=== PATIENT | male | born 1975 | race Caucasian/White ===

== ENCOUNTER 2024-03-13 07:34 | Observation (INO) ==
--- OUTSIDE RECORDS SUMMARY | 2024-03-13 07:39 | External Medical Summary | Summary of Care ---
Author Name Unknown Organization [facility] Address [address] [place] [address] Phone [phone] Care Team Providers Care Director Risk Name Role Phone Unavailable Primary Care Provider Unavailabl e Reason for Visit * Auth/Cert Specialty Diagnoses / Procedures Referred By Benton alcaraz Referred To Contact Diagnoses Family history of colon cancer Family history of colon cancer [Z80.0] Procedures COLONOSCOPY, DIAGNOSTIC (RECTUM) COLONOSCOPY FLEXIBLE PROXIMAL DIAGNOSTIC Isaias Rangel MD [address] [place] [address] Phone: tel: fax: ENDO [facility], Endoscopy Room [facility] [address] [place] [address] Phone: tel: Referral ID Status Reason Start Date Expiration Date Visits Re quested Visits Authorized [id number] Encounter Details Date Type Department Care Team (Latest Contact Info) Description 01/04/2024 1:44 PM EST - 01/04/2024 3:13 PM [facility] Hospital Encounter ENDO [facility], Endoscopy Room [facility] [address] [place] [address] Isaias Rangel MD [address] [place] [id number] Colonoscopy Discharge Disposition: Home - Self Care Allergies Active Allergy Reactions Criticality Noted Date Comments Pollen 12/27/2023 documented as of this encounter (statuses as of 01/05/2024) Medications Vilazodone HCl 10 MG Oral Tablet (Viibryd) Take 1 Tablet by mouth. 2 Active Vilazodone HCl 20 MG Oral Tablet (Viibryd) Take 1 Tablet by mouth. 3 Active buPROPion HCl ER (XL) 300 MG Oral Tablet Extended Release 24 Hour (Wellbutrin XL) Take 1 Tablet by mouth. 3 Active buPROPion HCl ER (XL) 150 MG Oral Tablet Extended Release 24 Hour (Wellbutrin XL) Take 1 Tablet by mouth in the morning. 2 Active Cetirizine HCl 10 MG Oral Tablet (ZyrTEC) Take 1 Tablet by mouth in the morning. Active Acetaminophen 500 MG Oral Tablet Take 1 Tablet by mouth every 6 hours as needed. Active valACYclovir HCl 1 GM Oral Tablet (Valtrex)Indicat ions:Oral herpes simplex infection Take 2 Tablets by mouth in the morning and 2 Tablets before bedtime. For 1 day for cold sores. 4 Tablet 5 4 Active Additional Information Patient not taking.Reported on 12/27/2023 Benzonatate 100 MG Oral Capsule (Tessalon Perlramon) Take 1 Capsule by mouth 3 times a day as needed for Cough. Do not cut, crush, or chew. 30 Capsule 4 Active Albuterol Sulfate (sensor) 108 (90 Base) MCG/ACT Aerosol Powder Breath ActivatedIndicat ions:Acute bronchitis, antibiotics not indicated Inhale 2 Puffs by mouth every 4 hours. 16 Each 2 4 Active predniSONE 10 MG Oral Tablet (Deltasone)Indic ations:Acute bronchitis, antibiotics not indicated Take 4 tabs for 2 days, 3 tabs for 2 days, 2 tabs for 2 days 1 tab for 2 days 20 Tablet 4 Active Albuterol Sulfate HFA 108 (90 Base) MCG/ACT Inhalation Aerosol Solution Inhale 2 Puffs by mouth every 6 hours as needed for Cough or Wheezing. 18 g 1 4 Active documented as of this encounter (statuses as of 01/05/2024) Active Problems Problem Noted Date Diagnosed Date DDD (degenerative disc disease), lumbar 09/14/19 23 Depression 09/13/2022 documented as of this encounter (statuses as of 01/05/2024) Immunizations Name Administration Dates Next Due Seasonal Influenza Virus Vac cine, Unspecified Formulation 11/18/2022 documented as of this encounter Social History Tobacco Use Types Packs/Day Years Used Date Smoking Tobacco: Never Smokeless Tobacco: Never Alcohol Use Standard Drinks/Week Comments Yes 0 (1 standard drink = 0.6 oz pur e alcohol) 1 drink maybe 3 times a week Sex and Gender Information Value Date Recorded Sex Assigned at Male 09/12/2022 4:49 PM EDT Legal Sex Male 10:00 AM EDT Gender Identity Male 09/12/2022 4:49 PM EDT Sexual Orientation Straight 09/12/2022 4: 49 PM EDT documented as of this encounter Last Filed Vital Signs Vital Sign Reading Time Taken Comments Blood Pressure 107/67 01/04/2024 2:51 PM EST Pulse 66 01/04/2024 2:51 PM EST Temperature 36.2 C (97.2 F) 01/04/2024 2:37 PM ES T Respiratory Rate 16 01/04/2024 2:51 PM EST Oxygen Saturation 100% 01/04/2024 2:51 PM EST Inhaled Oxygen Concentration - - Weight 77.1 kg (170 lb) 01/04/2024 2:02 PM EST Height 180.3 cm (5' 11") 01/04/2024 2:02 PM EST Body Mass Index 23.71 01/04/2024 2:02 PM EST documented in this encounter H&P Notes * Isaias Rangel MD - 01/04/2024 1:54 PM EST Endoscopy Pre-Procedure Assessment Name: Lior Wagner Date: 01/04/2024 Time: 1:54 PM Procedure: Colonoscopy; with Indication(s) of family history Endoscopy Pre-Procedure Assessment: Prior to the procedure, the patient was identified. The patient's history, medications and allergies were reviewed as per the Anesthesia Assessment. The patient is competent. The risks and benefits of the proposed procedure and the planned sedation were discussed with the patient. All questions were answered and informed consent for the procedure was obtained. This patient has undergone a preprocedural evaluation. A determination has been made to proceed with the planned procedure under [facility] procedural guidelines and the [facility] Non-Emergent, Elective Medical Services and Treatment Recommendations (published on 05-15-19). The community and hospital prevalence of COVID-19 has been discussed as well as this patient's specific risks associated with SARS-CoV-19 infection. Based upon the clinical acuity and patient-specific care considerations, this procedure is deemed a Tier II - Intermediate acuity treatment or service with either progression or the threat of progressive disease related to the delay in treatment. Not providing the service has the potential for increasing morbidity or mortality. Ht 1.803 m (5' 11") | Wt 77.1 kg (170 lb) | BMI 23.71 kg/m | BSA 1.97 m Prior to Admission medications Medication Sig Last Dose Discont. Albuterol Sulfate HFA 108 (90 Base) MCG/ACT Inhalation Aerosol Solution Inhale 2 Puffs by mouth every 6 hours as needed for Cough or Wheezing. 12/27/2023 Morning Albuterol Sulfate (sensor) 108 (90 Base) MCG/ACT Aerosol Powder Breath Activated Inhale 2 Puffs by mouth every 4 hours. 12/27/2023 predniSONE 10 MG Oral Tablet (Deltasone) Take 4 tabs for 2 days, 3 tabs for 2 days, 2 tabs for 2 days 1 tab for 2 days 12/27/2023 Morning Benzonatate 100 MG Oral Capsule (Tessalon Perles) Take 1 Capsule by mouth 3 times a day as needed for Cough. Do not cut, crush, or chew. Past Week Acetaminophen 500 MG Oral Tablet Take 1 Tablet by mouth every 6 hours as needed. 12/27/2023 buPROPion HCl ER (XL) 150 MG Oral Tablet Extended Release 24 Hour (Wellbutrin XL) Take 1 Tablet by mouth in the morning. 12/27/2023 Morning buPROPion HCl ER (XL) 300 MG Oral Tablet Extended Release 24 Hour (Wellbutrin XL) Take 1 Tablet by mouth. 12/27/2023 Morning Cetirizine HCl 10 MG Oral Tablet (ZyrTEC) Take 1 Tablet by mouth in the morning. 12/27/2023 Morning Vilazodone HCl 10 MG Oral Tablet (Viibryd) Take 1 Tablet by mouth. 12/27/2023 Morning Vilazodone HCl 20 MG Oral Tablet (Viibryd) Take 1 Tablet by mouth. 12/27/2023 Morning Amoxicillin-Pot Clavulanate 875-125 MG Oral Tablet (Augmentin) Take 1 Tablet by mouth in the morning and 1 Tablet before bedtime. Do all this for 10 days. predniSONE 20 MG Oral Tablet (Deltasone) Take 2 Tablets by mouth in the morning for 5 days. valACYclovir HCl 1 GM Oral Tablet (Valtrex) Take 2 Tablets by mouth in the morning and 2 Tablets before bedtime. For 1 day for cold sores. Patient not taking: Reported on 12/27/2023 Not Taking Review of patient's allergies indicates: Allergen Reactions Pollen Physical Exam: Mental Status Examination: alert and oriented. General: nad, calm Airway Examination: normal oropharyngeal airway and neck mobility. CV: no JVD Respiratory Examination: symmetrical excursion Abd:soft/ntd ASA Grade: III - A patient with severe systemic disease. After reviewing the risks and benefits, the patient was deemed in satisfactory condition to undergothe procedure. The anesthesia plan was to use general anesthesia. Isaias Rangel MD 01/04/2024 documented in this encounter Procedure Notes * Leigh Aaron MD - 01/04/2024 1:55 PM ESTAssociated Order(s): COLONOSCOPY [facility] Patient Name: Lior Wagner Procedure Date: 01/04/2024 1:55 PM Date of : 1975 Admit Type: Outpatient Note Status: Finalized Date of : 1975 Admit Type: Outpatient Age: 48 Room: [facility] 2 Gender: Male Note Status: Finalized Procedure: Colonoscopy Indications: Screening in patient at increased risk: Family history of 1st- degree relative with colorectal cancer Providers: Isaias Rangel MD (Doctor) Referring MD: Leigh Aaron MD (Referring MD) Medicines: Propofol per Anesthesia Complications: No immediate complications. Estimated blood loss: None. Procedure: Pre-Anesthesia Assessment: - - Prior to the procedure, a History and Physical was performed, patient medications, allergies and sensitivities were reviewed. The patient's tolerance of previous anesthesia was reviewed. See Epic for further details. - The risks, benefits, and alternatives of the procedure including the sedation options and risks were discussed with the patient. All questions were answered and informed consent was obtained. - Patient identification and proposed procedure were verified prior to the procedure by the physician and the nurse. The procedure was verified in the procedure room. - See [facility] for documentation of the pre-procedure assessment including ASA status. - After I obtained informed consent, the scope was carefully and meticulously passed under direct vision only when the lumen was definitively identified. CO2 insufflation was utilized throughout the entire procedure exclusively. After I obtained informed consent, the scope was passed under direct vision. All instruments were visually inspected immediately before and after removal from the patient to ensure they are fully intact. Throughout the procedure, the patient's blood pressure, pulse, and oxygen saturations were monitored continuously. The colonoscopy was performed without difficulty. The patient tolerated the procedure well. The quality of the bowel preparation was good. The [employer]-[id number] Colonoscope ([id number]) was introduced through the anus and advanced to the cecum, identified by appendiceal orifice and ileocecal valve. Findings & Specimens: The terminal ileum appeared normal. Multiple small-mouthed diverticula were found in the sigmoid colon. Internal hemorrhoids were found during retroflexion. The exam was otherwise without abnormality on direct and retroflexion views. Impression: - The examined portion of the ileum was normal. - Diverticulosis in the sigmoid colon. - Internal hemorrhoids. - The examination was otherwise normal on direct and retroflexion views. - No specimens collected. Recommendation: - Discharge patient to home (with escort). - Repeat colonoscopy in 5 years for surveillance. - Return to referring physician as previously scheduled. - Patient has a contact number available for emergencies. The signs and symptoms of potential delayed complications were discussed with the patient. Return to normal activities tomorrow. Written discharge instructions were provided to the patient. Isaias Rangel MD 01/04/2024 2:33:39 PM This report has been signed electronically. documented in this encounter Nursing Notes * Leyda Syed RN - 01/04/2024 2:44 PM EST Patient transferred to post endo s/p colonoscopy. Patient drowsy but easily responsive to voice. Asking questions but repeating self Respirations are even and unlabored on room air. NSR in the 70s on the monitor. Abdomen soft and non distended. Vital signs stable. * Atilio Gloria RN - 01/04/2024 2:32 PM EST No abdominal pressure given See anesthesia record for medication administered during procedure. Atilio Gloria RN Pre cleaning of scope at the bedside started by electronic test technician. * Ly Reddy RN - 01/04/2024 1:53 PM EST Patient prepped and ready for procedure. Call alonso in reach. * Ly Reddy RN - 01/04/2024 1:49 PM EST The following pt discharge instructions reviewed with pt prior to prodedure: No driving today. No alcohol today. No signing of legal documents. Rest as much as possible today and can return to normal activities tomorrow. No operating any heavy equipment today. Diet as tolerated. Pt verbalized understanding. documented in this encounter Plan of Treatment Upcoming Encounters Date Type Department Care Team (Late st Contact Info) Description 04/23/2024 10:20 AM EDT Office Visit General Internal Medicine [facility] [place] [address] [place] [phone] Leigh Aaron MD [address] [place] [address] Health Maintenance Due Date Last Done Comments Depression Monitoring 1989 HIV Screening 01/14/1992 Hepatitis C Screening 1995 DTap/Tdap Vaccines (1 - Tdap) 01/14/1996 Hepatitis B Vaccine (1 of 3 - 19+ 3-dose series) 01/14/1996 Cologuard 2022 Fecal Occult Blood Test 2022 Sigmoidoscopy 2022 COVID-19 Vaccine (2 - 2023-2 5 season) 2023 11/18/2022 Influenza Vaccine (FLU shot) (#1) 2023 11/18/2022 Lipid Panel 04/21/2028 04/22/2023, 05/24/2022 Colonoscopy 01/03/2034 01/04/2024 Colorectal Cancer Screening 01/03/2034 HPV (Gardasil) Vaccine Aged Out No lo nger eligible based on patient's age to complete this topic MENINGOCOCCAL (MENACTRA/MENVEO) Aged Out No longer eligible b ased on patient's age to complete this topic Pneumococcal Vaccine: Pediatrics (0 to 5 Years) and At-Risk Patients (6 to 64 Years) Aged Out No longer eligible b ased on patient's age to complete this topic documented as of this encounter Medical Devices Not on filedocumented as of this encounter Procedures Procedure Name Priority Date/Time Associated Diagnosis Comments COLONOSCOPY 01/04/2024 1:55 PM EST documented in this encounter Results * COLONOSCOPY (01/04/2024 1:55 PM EST) 01/04/2024 1:55 PM EST Narrative Procedure Note Leigh Aaron MD - 01/04/2024 1:55 PM EST [facility] Patient Name: Lior Wagner Procedure Date: 01/04/2024 1:55 PM Date of : 1975 Admit Type: Outpatient Note Status:Finalized Date of : 1975 Admit Type: Outpatient Age: 48 Room: [facility] 2 Gender: Male Note Status: Finalized Procedure: Colonoscopy Indications: Screening in patient at increased risk: Familyhistory of 1st-degree relative with colorectal cancer Providers: Isaias Rangel MD (Doctor) Referring MD: Leigh Aaron MD (Referring MD) Medicines: Propofol per Anesthesia Complications: No immediate complications. Estimated blood loss:None. Procedure: Pre-Anesthesia Assessment: - - Prior to the procedure, a History and Physicalwas performed, patient medications, allergies and sensitivities were reviewed. Thepatient's tolerance of previous anesthesia was reviewed. See [facility] for furtherdetails. - The risks, benefits, and alternatives of theprocedure including the sedation options and risks were discussed with the patient.All questions were answered and informed consent was obtained. - Patient identification and proposed procedurewere verified prior to the procedure by the physician and the nurse. The procedure wasverified in the procedure room. - See [facility] for documentation of the pre-procedureassessment including ASA status. - After I obtained informed consent, the scope wascarefully and meticulously passed under direct vision only when the lumen wasdefinitively identified. CO2 insufflation was utilized throughout the entire procedureexclusively. After I obtained informed consent, the scope waspassed under direct vision. All instruments were visually inspected immediatelybefore and after removal from the patient to ensure they are fully intact. Throughout the procedure, the patient's bloodpressure, pulse, and oxygen saturations were monitored continuously. The colonoscopy wasperformed without difficulty. The patient tolerated the procedure well. The qualityof the bowel preparation was good. The [id number] Colonoscope ([id number]) was introducedthrough the anus and advanced to the cecum, identified by appendiceal orifice andileocecal valve. Findings & Specimens: The terminal ileum appeared normal. Multiple small-mouthed diverticula were found in the sigmoid colon. Internal hemorrhoids were found during retroflexion. The exam was otherwise without abnormality on direct and retroflexionviews. Impression: - The examined portion of the ileum was normal. - Diverticulosis in the sigmoid colon. - Internal hemorrhoids. - The examination was otherwise normal on directand retroflexion views. - No specimens collected. Recommendation: - Discharge patient to home (with escort). - Repeat colonoscopy in 5 years for surveillance. - Return to referring physician as previouslyscheduled. - Patient has a contact number available foremergencies. The signs and symptoms of potential delayed complications were discussed withthe patient. Return to normal activities tomorrow. Written discharge instructionswere provided to the patient. Isaias Rangel MD 01/04/2024 2:33:39 PM This report has been signed electronically. Leigh Aaron MD [facility] Final Result documented in this encounter Administered Medications Inactive Administered Medications - up to 3 most recent administrations Medication Order MAR Action Action Date Dose Rate Site Isolyte-S pH 7.4 infusion Intravenous, at 100 mL/hr, Plasma-LYTE 148, isolyte-S, and isolyte-S pH 7.4 are considered equivalent - including for MAR barcode scanning., CONTINUOUS, Starting on Tue01/04/24 at 1430, Until Tue01/04/24 at 1913, Pre-Op Continue from Pre-Op 01/04/2024 2:13 PM EST 100 mL/hr New Bag 01/04/2024 2:05 PM EST 100 mL/hr documented in this encounter Active and Recently Administered Medications Times are shown in EST. Continuous Medication Order 01/02/2024 01/03/2024 01/04/2024 Isolyte-S pH 7.4 infusion Intravenous, at 100 mL/hr, Plasma-LYTE 148, isolyte-S, and isolyte-S pH 7.4 are considered equivalent - including for MAR barcode scanning., CONTINUOUS, Starting on Tue01/04/24 at 1430, Until Tue01/04/24 at 191, Pre-Op 1405 (New Bag - Prov ider: Ly Reddy RN)1413 (Continue from Pre-Op - Provider: Luis Castellon CRNA) documented in this encounter
--- OUTSIDE RECORDS SUMMARY | 2024-03-13 07:40 | External Medical Summary | Summary of Care ---
Author Name Unknown Organization [facility] Address [address] [place] [address] Phone [phone] Care Team Providers Care Engineering Director Name Role Phone Unavailable Primary Care Provider Unavailabl e Reason for Visit * Reason Onset Date Comments Preop Pt Assessment 12/27/2023 Encounter Details Date Type Department Care Team (Late st Contact Info) Description 12/27/2023 Telephone Pre Surgery Center[facility] [address] [place] [address] Isaias Rangel MD [address] [place] [address] Preop Pt Assessment Allergies Active Allergy Reactions Criticality Noted Date Comments Pollen 12/27/2023 documented as of this encounter (statuses as of 12/27/2023) Medications Vilazodone HCl 10 MG Oral Tablet [...] as of this encounter (statuses as of 12/27/2023) Active Problems Problem Noted Date Diagnosed Date DDD (degenerative disc disease), lumbar 09/14/19 23 Depression 09/13/2022 documented as of this encounter (statuses as of 12/27/2023) Immunizations Name Administration Dates Next Due Seasonal [...] PM EDT documented as of this encounter Plan of Treatment Upcoming Encounters Date Type Department Care Team (Latest Contact Info) Description 01/04/2024 2:30 PM EST Hospital Encounter [facility]O [facility], Endoscopy Room [facility] [address] [place] [phone] Isaias Rangel MD [address] [place] [address] 01/04/2024 2:30 PM EST - 01/04/2024 3:00 PM EST Surgery ENDO [facility], Endoscopy Room [facility] [address] [place] [phone] Isaias Rangel MD [address] [place] [address] COLONOSCOPY FLEXIBLE PROXIMAL DIAGNOSTIC 04/23/2024 10:20 AM EDT Office [facility] [address] [place] [address] Leigh Aaron MD [address] [facility] [place] [address] Scheduled Procedures Name Priority Associated Diagnoses Date/Ti me COLONOSCOPY FLEXIBLE PROXIMAL DIAGNOSTIC Family history of colon cancer 01/04/2024 2:30 PM EST Health Maintenance Due Date Last Done Comments Depression Monitoring 1989 HIV Screening 01/14/1992 Hepatitis C Screening 1995 DTap/Tdap Vaccines (1 - Tdap) 01/14/1996 Hepatitis B Vaccine (1 of 3 - 19+ 3-dose series) 01/14/1996 Cologuard 2022 Colonoscopy 2022 Colorectal Cancer Screening 2022 Fecal Occult Blood Test 2022 Sigmoidoscopy 2022 COVID-19 Vaccine (2 - 2023-2 5 season) 2023 11/18/2022 Influenza Vaccine (FLU shot) (#1) 2023 11/18/2022 Lipid Panel 04/21/2028 04/22/2023, 05/24/2022 HPV (Gardasil) Vaccine Aged Out No lo [...]
--- OUTSIDE RECORDS SUMMARY | 2024-03-13 07:40 | External Medical Summary | Summary of Care ---
Author Name Unknown Organization [facility] Address [address] [place] [address] Phone [phone] Care Team Providers Care Carbon Setter Name Role Phone Unavailable Primary Care Provider Unavailabl e Reason for Visit * Reason Onset Date Comments Medication Refill 12/26/2023 Encounter Details Date Type Department Care Team (Late st Contact Info) Description 12/26/2023 Refill General Internal Medicine [place] [employer] 200 [facility] [place] [address] Leigh Mccabe MD 200 [facility] [place] [address] Acute bronchitis, antibiotics not indicated Allergies No known active allergiesdocumented as of this encounter (statuses as of 12/27/2023) Medications Vilazodone HCl 10 MG Oral Tablet (Viibryd) Take 1 Tablet by mouth. 11/26/2021 Active Vilazodone HCl 20 MG Oral Tablet (Viibryd) Take 1 Tablet by mouth. 06/07/2022 Active buPROPion HCl ER (XL) 300 MG Oral Tablet Extended Release 24 Hour (Wellbutrin XL) Take 1 Tablet by mouth. 06/07/2022 Active buPROPion HCl ER (XL) 150 MG Oral Tablet Extended Release 24 Hour (Wellbutrin XL) Take 1 Tablet by mouth in the morning. 10/14/2021 Active Cetirizine HCl 10 MG Oral Tablet [...] day for cold sores. 4 Tablet 5 04/18/2023 Active Benzonatate 100 MG Oral Capsule (Tessalon Perlramon) Take 1 Capsule by mouth 3 times a day as needed for Cough. Do not cut, crush, or chew. 30 Capsule 12/06/2023 Active Albuterol Sulfate (sensor) 108 (90 Base) MCG/ACT Aerosol Powder Breath ActivatedIndicat ions:Acute bronchitis, antibiotics not indicated Inhale 2 Puffs by mouth every 4 hours. 16 Each 2 12/22/2023 Active predniSONE 10 MG Oral Tablet (Deltasone)Indic ations:Acute bronchitis, antibiotics not indicated Take 4 tabs for 2 days, 3 tabs for 2 days, 2 tabs for 2 days 1 tab for 2 days 20 Tablet 12/22/2023 Active Albuterol Sulfate HFA 108 (90 Base) MCG/ACT Inhalation Aerosol Solution Inhale 2 Puffs by mouth every 6 hours as needed for Cough or Wheezing. 18 g 1 12/27/2023 Active documented as of this encounter (statuses [...] PM EDT documented as of this encounter Miscellaneous Notes * Telephone Encounter - Abbey Hutchison LPN - 12/27/2023 2:36 PM ESTSigned Prescriptions: Disp Refills Albuterol Sulfate HFA 108 (90 Base) MCG/AC*18 g 1 Sig: Inhale 2 Puffs by mouth every 6 hours as needed for Cough or Wheezing.Authorizing Provider: LEIGH MCCABERefused Prescriptions: Disp Refills Albuterol Sulfate (sensor) 108 (90 Base) M*16 Each2 Sig: Inhale 2 P uffs by mouth every 4 hours.Refused By: Migdalia ANNE for Refusal: Too soon * Telephone Encounter - Abbey Hutchison LPN - 12/27/2023 2:36 PM EST MyG sent * Telephone Encounter - Leigh Mccabe MD - 12/27/2023 2:10 PM EST Alternative sent Please notify * Telephone Encounter - Leigh Mccabe MD - 12/27/2023 2:10 PM ESTSigned Prescriptions: Disp Refills Albuterol Sulfate HFA 108 (90 Base) MCG/AC*18 g 1 Sig: Inhale 2 Puffs by mouth every 6 hours as needed for Cough or Wheezing.Authorizing Provider: LEIGH MCCABERefused Prescriptions: Disp Refills Albuterol Sulfate (sensor) 108 (90 Base) M*16 Each2 Sig: Inhale 2 P uffs by mouth every 4 hours.Refused By: Migdalia ANNE for Refusal: Too soon * Telephone Encounter - Janett Rivera LPN - 12/27/2023 2:03 PM ESTPending Prescriptions: Disp Refills Albuterol Sulfate (sensor) 108 (90 Base) M*16 Each2 Sig: Inhale 2 Puffs by mouth every 4 hours. Refused Prescriptions: Disp Refills Albuterol Sulfate (sensor) 108 (90 Base) M*16 Each2 Sig: Inhale 2 Puffs by mouth every 4 hours. Refused By: HINA ANNE Reason for Refusal: Too soon * Telephone Encounter - Lucia Valentino CPhT - 12/27/2023 1:57 PM EST Pt following up on the Albuterol request, if there are any questions please call [phone]. Thank you, Lucia Valentino CPhT Semi Conductor Assembler II [facility] ([facility]) 12/27/2023,1:58 PM * Telephone Encounter - Saloni Fowler OSA - 12/27/2023 1:22 PM EST Need clarification Please consider Albuterol HFA for insurance coverage * Telephone Encounter - Hina Anne CMA - 12/26/2023 1:48 PM ESTRefused Prescriptions: Disp Refills Albuterol Sulfate (sensor) 108 (90 Base) M*16 Each2 Sig: Inhale 2 Puffs by mouth every 4 hours. Refused By: HINA ANNE Reason for Refusal: Too soon * Telephone Encounter - Benita Garcia OSA - 12/26/2023 7:32 AM EST Did you pend patient's preferred pharmacy and medication before forwarding?yes Pharmacy: [id number] [facility] Pending Prescriptions: Disp Refills Albuterol Sulfate (sensor) 108 (90 Base) *16 Each2 Sig: Inhale 2 Puffs by mouth every 4 hours. Last Visit: 12/22/2023 (in office), 12/06/2023 (telemedicine) Next Visit: 04/23/2024 If no future appointments scheduled, and last appointment is greater than a year ago, please schedule patient for a follow-up appointment Last date the medication was ordered: 12/22/2023 Is this request for a controlled substance?No Urine Drug Screen:No results found for this or any previous visit. Patient Phone Numbers mobile [phone] Labs: Lab Results Component Value Date/Time CREAT 1.4 (H) 05/24/2023 08:02 AM CREAT 1.37 (A) 05/24/2022 12:00 AM POTASSIUM 4.7 05/24/2023 08:02 AM POTASSIUM 5.0 05/24/2022 12:00 AM TSH 1.290 05/24/2022 12:00 AM LDL 91 04/22/2023 07:19 AM LDLCALC 116 (A) 05/24/2022 12:00 AM ALT 35 04/22/2023 07:19 AM documented in this encounter Plan of Treatment Upcoming Encounters Date Type Department Care Team (Latest Contact Info) Description 01/04/2024 2:30 PM EST Hospital Encounter [facility]O [facility], Endoscopy Room [facility] [address] [place] [phone] Isaias Rangel MD [address] [place] [address] 01/04/2024 2:30 PM EST - 01/04/2024 3:00 PM EST Surgery ENDO [facility], Endoscopy Room [facility] [address] [place] [phone] Isaias Rangel MD [address] [place] [address] COLONOSCOPY FLEXIBLE PROXIMAL DIAGNOSTIC 04/23/2024 10:20 AM EDT Office Visit General Internal Medicine [facility] [place] 200 [facility] [place] [address] Leigh Mccabe MD [address] [place] [address] Scheduled Procedures Name Priority Associated Diagnoses Date/Ti [...] Not on filedocumented as of this encounter Visit Diagnoses Diagnosis Acute bronchitis, antibiotics not indicated Acute bronchitis Family history of colon cancer Family history of malignant neoplasm of gastrointestinal tract documented in this encounter
--- OUTSIDE RECORDS SUMMARY | 2024-03-13 07:40 | External Medical Summary | Summary of Care ---
Author Name Unknown Organization [facility] Address [address] [place] [address] Phone [phone] Care Team Providers Care Academic Support Center Director Name Role Phone Unavailable Primary Care Provider Unavailabl e Reason for Visit * Reason Onset Date Comments Med Request 12/06/2023 Encounter Details Date Type Department Care Team (Late st Contact Info) Description 12/06/2023 Telephone General Internal Medicine [facility] [place] 200 [facility] [place] [address] Charlotte Florian PA-C 200 [facility] [place] [address] Med Request Allergies No known active allergiesdocumented as of this encounter (statuses as of 12/06/2023) Medications Medication Sig Dispensed Refills Start Date End Date Status Vilazodone HCl 10 MG Oral Tablet (Viibryd) [...] Active valACYclovir HCl 1 GM Oral Tablet (Valtrex)Indications :Oral herpes simplex infection Take 2 Tablets by mouth in the morning and 2 Tablets before bedtime. For 1 day for cold sores. 4 Tablet 5 04/18/2023 Active Amoxicillin-Pot Clavulanate 875-125 MG Oral Tablet (Augmentin) Take 1 Tablet by mouth in the morning and 1 Tablet before bedtime. Do all this for 10 days. 20 Tablet 12/06/2023 12/16/2023 Active Benzonatate 100 MG Oral Capsule (Tessalon Perles) Take 1 Capsule by mouth 3 times a day as needed for Cough. Do not cut, crush, or chew. 30 Capsule 12/06/2023 Active predniSONE 20 MG Oral Tablet (Deltasone) Take 2 Tablets by mouth in the morning for 5 days. 10 Tablet 12/06/2023 12/11/2023 Active documented as of this encounter (statuses as of 12/06/2023) Active Problems Problem Noted Date Diagnosed Date DDD (degenerative disc disease), lumbar 09/14/19 23 Depression 09/13/2022 documented as of this encounter (statuses as of 12/06/2023) Immunizations Name Administration Dates Next Due Seasonal Influenza Virus Vac cine, Unspecified Formulation 11/18/2022 documented as of this encounter Social History Tobacco Use Types Packs/Day Years Used Date Smoking Tobacco: Never Smokeless Tobacco: Never Alcohol Use Standard Drinks/Week Comments Yes 0 (1 standard drink = 0.6 oz pur e alcohol) 1 drink maybe 3 times a week Utilities Answer Date Recorded Do you have trouble paying y our heating, water, or electric bill? (Adult - for ages 18 years and over) Not on file 07/26/2023 Is your family able to pay t he heat, water, or electric bill? (Household - for ages 0-17 years) Not on file 07/26/2023 Does your family have access to good internet? (Household - for ages 0-17 years) Not on file 07/26/2023 Social Connections Answer Date Recorded How often do you feel lonely or isolated from those around you? (Adult - for ages 18 years and over) Not on file 07/26/2023 Sex and Gender Information Value Date Recorded Sex Assigned at Male 09/12/2022 4:49 PM EDT Gender Identity Male 09/12/2022 4:49 PM EDT Sexual Orientation Straight 09/12/2022 4: 49 PM EDT Job Start Date Occupation Industry Not on file Not on file Not on file documented as of this encounter Miscellaneous Notes * Telephone Encounter - Charlotte Florian PA-C - 12/06/2023 10:10 AM EDT Script sent. * Telephone Encounter - Flor Fontenot OSA - 12/06/2023 9:25 AM EDT Patient calling in, he has reconsidered and would like the steroid tablets that were discussed at todays appointment sent to [facility]. documented in this encounter Plan of Treatment Upcoming Encounters Date Type Department Care Team (Latest Contact Info) Description 01/04/2024 2:30 PM EST Hospital Encounter ENDO [facility], Endoscopy Room [facility] [address] [place] [phone] Isaias Rangel MD [address] [place] [address] 01/04/2024 2:30 PM EST - 01/04/2024 3:00 PM EST Surgery ENDO [facility], Endoscopy Room [facility] [address] [place] [phone] Isaias Rangel MD [address] [place] [address] COLONOSCOPY FLEXIBLE PROXIMAL DIAGNOSTIC 04/23/2024 10:20 AM EDT Office Visit General Internal Medicine [place] [address] [place] [address] Leigh Aaron MD [address] [facility] [place] [address] Scheduled Procedures Name Priority Associated Diagnoses Date/Ti [...]
--- OUTSIDE RECORDS SUMMARY | 2024-03-13 07:40 | External Medical Summary | Summary of Care ---
Author Name Unknown Organization [facility] Address [address] [place] [address] Phone [phone] Care Team Providers Care Glassware Engraver Name Role Phone Unavailable Primary Care Provider Unavailabl e Reason for Visit * Reason Comments Acute Patient has kelly sick since last Tuesday and symptoms have become progressively worse since. Is experiencing cough, lots of nasal/chest congestion, mild sore throat from coughing. Encounter Details Date Type Department Care Team (Late st Contact Info) Description 12/06/2023 8:40 AM EDT Telemedicine General Internal Medicine [facility] [place] 200 [facility] [place] [address] Charlotte Florian PA-C 200 [facility] [place] [address] Acute sinusitis, recurrence not specified, unspecified location* Allergies No known active allergiesdocumented as of [...] crush, or chew. 30 Capsule 12/06/2023 Active documented as of this encounter (statuses [...] on file documented as of this encounter Progress Notes * Charlotte Florian PA-C - 12/06/2023 8:47 AM EDT Images from the original note were not included. History of Present Illness Lior Wagner is a 48 year old male that presents for Acute (Patient has kelly sick since last Tuesday and symptoms have become progressively worse since. Is experiencing cough, lots of nasal/chest congestion, mild sore throat from coughing. ) Patient location: HOME. I was in a hospital or clinic location. After connecting through [email or web address],patient was verified with two unique identifiers. Patient (or authorized legal accounts receivable representative) was then informed that this was a Telemedicine visit and being conducted confidentially over secure lines. Methods to assure confidentiality were taken. Patient acknowledged consent and understanding of pr ivacy and security of the Telemedicine visit. The patient agreed to participate. Pt seen today via video with a c/o an 8 day history of cough, sinus pressure, PND, and CASTANO. Reports initially had chills, body aches, and sore throat as well but these have subsided. Denies chest pain, SOB, or NVD. No tobacco use. No recent COVID testing. Reports he did receive a COVID vaccine 3 weeks ago. Pt has tried taking Sudafed, an expectorant, and Tylenol for symptoms. Review of Systems: See HPI for pertinent positives. All other review of systems is negative. Physical Exam There were no vitals filed for this visit. Physical Exam Constitutional: General: He is not in acute distress. Pulmonary: Effort: Pulmonary effort is normal. Comments: Cough noted throughout encounter. Neurological: General: No focal deficit present. Mental Status: He is alert. Psychiatric: Mood and Affect: Mood normal. Behavior: Behavior normal. I have reviewed the following results: Assessment and Plan Acute sinusitis, recurrence not specified, unspecified location Augmentin for sinusitis. Daily yogurt/probiotic encouraged while taking the antibiotic. Tessalon PRN cough. Call back if not improving. Wrap-Up Follow Up: Return if symptoms worsen or fail to improve. Time: I spent a total of 20-29 minutes (exact time 20 mins) on the date of service in preparation, delivery, and documentation of the care provided to Lior Wagner excluding any time spent in the performance of separately billed services. documented in this encounter Nursing Notes * Shawnee Plasencia MED ASSIST - 12/06/2023 8:40 AM EDT Chief Complaint Patient presents with Acute Patient has kelly sick since last Tuesday and symptoms have become progressively worse since. Is experiencing cough, lots of nasal/chest congestion, mild sore throat from coughing. documented in this encounter Plan of Treatment Upcoming Encounters Date Type Department Care Team (Latest Contact Info) Description 01/04/2024 2:30 PM EST Hospital Encounter [facility]O [facility], Endoscopy Room [facility] [address] [place] [phone] Isaias Rangel MD [address] [place] [address] 01/04/2024 2:30 PM EST - 01/04/2024 3:00 PM EST Surgery ENDO [facility], Endoscopy Room [facility] [address] [place] [phone] Isaias Rangel MD [address] [place] [address] COLONOSCOPY FLEXIBLE PROXIMAL DIAGNOSTIC 04/23/2024 10:20 AM EDT Office Visit General Internal Medicine [place] [address] [place] [address] Leigh Aaron MD [address] [place] [address] Scheduled Procedures Name Priority Associated Diagnoses Date/Ti [...] of this encounter Visit Diagnoses Diagnosis Acute sinusitis, recurrence not specified, unspecified location- Primary Family history of colon cancer Family history of malignant neoplasm of gastrointestinal tract documented in this encounter
--- OUTSIDE RECORDS SUMMARY | 2024-03-13 07:40 | External Medical Summary | Summary of Care ---
Author Name Unknown Organization [facility] Address [address] [place] [address] Phone [phone] Care Team Providers Care Microphone Boom Operator Name Role Phone Unavailable Primary Care Provider Unavailabl e Reason for Visit * Reason Onset Date Comments Medication Refill 12/26/2023 Encounter Details Date Type Department Care Team (Late st Contact Info) Description 12/26/2023 Refill General Internal Medicine [employer] 200 [facility] [place] [address] Leigh Mccabe MD 200 [facility] [place] [address] Acute bronchitis, antibiotics not indicated Allergies No [...] encounter Miscellaneous Notes * Telephone Encounter - Leigh Mccabe MD [...] if there are any questions please call [phone]. Thank you, Lucia Valentino CPhT Statistical Reporting Analyst II [facility] ([facility]) 12/27/2023,1:58 PM * Telephone Encounter - Saloni Folwer OSA - 12/27/2023 1:22 PM EST Need [...] pharmacy and medication before forwarding?yes Pharmacy: [id number] [address] [place] [address] Pending Prescriptions: Disp Refills Albuterol Sulfate (sensor) [...] or any previous visit. Patient Phone Numbers Labs: Lab Results Component Value Date/Time CREAT [...] EST Hospital Encounter ENDO [facility], Endoscopy Room [facility] [address] [place] [phone] Isaias Rangel MD [address] [place] [address] 01/04/2024 2:30 PM EST - 01/04/2024 3:00 PM EST Surgery ENDO [facility], Endoscopy Room [facility] [address] [place] [phone] Isaias Rangel MD [address] [place] [address] COLONOSCOPY FLEXIBLE PROXIMAL DIAGNOSTIC 04/23/2024 10:20 AM EDT Office Visit General Internal Medicine [place] [address] [place] [address] Leigh Mccabe MD [address] [facility] [place] [id number] Scheduled Procedures Name Priority Associated Diagnoses Date/Ti [...]
--- OUTSIDE RECORDS SUMMARY | 2024-03-13 07:40 | External Medical Summary | Summary of Care ---
Author Name Unknown Organization [facility] Address [address] [place] [address] Phone [phone] Care Team Providers Care Asphalt Mixer Name Role Phone Unavailable Primary Care Provider Unavailabl e Reason for Visit * Reason Comments Acute Encounter Details Date Type Department Care Team (Late st Contact Info) Description 12/22/2023 11:20 AM EST Office Visit General Internal Medicine [facility] [place] 200 [facility] [place] [address] Leigh Aaron MD 200 [facility] [place] [address] Acute bronchitis, antibiotics not indicated* Allergies No known active allergiesdocumented as of this encounter (statuses as of 12/22/2023) Medications Vilazodone HCl 10 MG Oral Tablet [...] 04/18/2023 Active Benzonatate 100 MG Oral Capsule (Tessalnatalia Perlramon) Take 1 Capsule by mouth 3 [...] for 2 days 20 Tablet 12/22/2023 Active documented as of this encounter (statuses as of 12/22/2023) Active Problems Problem Noted Date Diagnosed Date DDD (degenerative disc disease), lumbar 09/14/19 23 Depression 09/13/2022 documented as of this encounter (statuses as of 12/22/2023) Immunizations Name Administration Dates Next Due Seasonal [...] Sign Reading Time Taken Comments Blood Pressure 112/72 12/22/2023 11:24 AM EST Pulse 64 12/22/2023 11:24 AM EST Temperature 36 C (96.8 F) 12/22/2023 11:24 AM EST Respiratory Rate 18 12/22/2023 11:24 AM EST Oxygen Saturation 99% 12/22/2023 11:24 AM EST Inhaled Oxygen Concentration - - Weight 77.7 kg (171 lb 6.4 oz) 12/22/2023 11:24 AM EST Height 180.3 cm (5' 10.98") 12/22/2023 11:24 AM EST Body Mass Index 23.92 12/22/2023 11:24 AM EST documented in this encounter Progress Notes * Leigh Aaron MD - 12/22/2023 3:49 PM EST I attest that I have reviewed the student note and that the components of the history, the physicalexam, and the assessment and plan documented were performed in my presence with the student where Iverified the documentation and performed (or re-performed) the exam and medical decision making. I spent a total of 32 minutes coordinating, documenting, and providing care for this patient excluding time spent in the performance of separately billed services. A/P: Acute bronchitis, antibiotics not indicated (Primary) - Albuterol Sulfate (sensor) 108 (90 Base) MCG/ACT Aerosol Powder Breath Activated; Inhale 2 Puffs by mouth every 4 hours. - predniSONE 10 MG Oral Tablet (Deltasone); Take 4 tabs for 2 days, 3 tabs for 2 days, 2 tabs for 2days 1 tab for 2 days Mucinex bid If gets dry cough or spells occ in future can try albuterol and may need to look into possible asthma Leigh Aaron MD 12/22/2023 3:49 PM documented in this encounter Nursing Notes * Adelita Licea Student - 12/22/2023 11:22 AM EST Pt here for a cough he has had for over 3 weeks. He claimed it almost went away but then came back again. He describes it as a productive cough. Clear production. No green/yellow documented in this encounter Plan of Treatment Upcoming Encounters Date Type Department Care Team (Latest Contact Info) Description 01/04/2024 2:30 PM EST Hospital Encounter ENDO [facility], Endoscopy Room [facility] [address] [place] [phone] Isaias Rangel MD [address] [place] [address] 01/04/2024 2:30 PM EST - 01/04/2024 3:00 PM EST Surgery ENDO [facility], Endoscopy Room [facility] [address] [place] [address] Isaias Rangel MD [address] [place] [address] COLONOSCOPY FLEXIBLE PROXIMAL DIAGNOSTIC 04/23/2024 10:20 AM EDT Office Visit General Internal Medicine [facility] 200 [facility] [place] [address] Leigh Aaron MD 200 [place] [address] Scheduled Procedures Name Priority Associated Diagnoses Date/Ti [...] Visit Diagnoses Diagnosis Acute bronchitis, antibiotics not indicated- Primary Acute bronchitis Family history of colon cancer Family history of malignant neoplasm of gastrointestinal tract documented in this encounter
--- OUTSIDE RECORDS SUMMARY | 2024-03-13 07:40 | External Medical Summary | Summary of Care ---
Author Name Unknown Organization [facility] Address [address] [place] [address] Phone [phone] Care Team Providers Care Vp Outcomes Name Role Phone Unavailable Primary Care Provider Unavailabl e Reason for Visit * Reason Onset Date Comments Medication Refill 12/26/2023 Encounter Details Date Type Department Care Team (Late st Contact Info) Description 12/26/2023 Refill General Internal Medicine [place] [employer] 200 [facility] [place] [address] Leigh Mccabe MD 200 [facility] [place] [address] Acute bronchitis, antibiotics not indicated Allergies No [...] if there are any questions please call [phone]. Thank you, Lucia Valentino CPhT Pipe Fitter Ammonia II [facility] ([facility]) 12/27/2023,1:58 [...] pharmacy and medication before forwarding?yes Pharmacy: [id number] [address] [place] [address] Pending Prescriptions: Disp Refills Albuterol Sulfate (sensor) [...] EST Hospital Encounter [facility], Endoscopy Room [facility] [address] [place] [phone] Isaias Rangel MD [address] [place] [address] 01/04/2024 2:30 PM EST - 01/04/2024 3:00 PM EST Surgery ENDO [facility], Endoscopy Room [facility] [address] [place] [phone] Isaias Rangel MD [address] [place] [address] COLONOSCOPY FLEXIBLE PROXIMAL DIAGNOSTIC 04/23/2024 10:20 AM EDT Office Visit General Internal Medicine [place] [address] [place] [address] Leigh Mccabe MD [address] [facility] [place] [id number] Scheduled Procedures Name Priority Associated Diagnoses Date/Ti [...]
--- NOTE | 2024-03-13 08:03 | Emergency Department Note ---
Impression & Plan Accidental overdose ED Provider Note ED Provider Note NAME: MILAGROS MALDONADO AGE:49 SEX: Male : 1975 ARRIVES VIA: Private vehicle INFORMANT: Patient ED PROVIDER(s): Jolynn Barajas DO CHIEF COMPLAINT: Accidental overdose HPI: This is a 49-year-old male who presents emerged ferment due to accidental overdose this morning. Patient woke at 5 AM and took his usual morning medications which include Wellbutrin XL 450 mg, the Vilazidone 30 mg, and cetirizine. Patient states he continued his morning routine and then thought he had not taken his medications yet and so he took a second dose at approximately 515. Patient states he then realized in his pillowcase what days were missing and recognize that he had accidentally taken a second dose. He did try to induce vomiting however this was unsuccessful. He states he did eventually contact poison control after reading about the medications online and was instructed to come here due to concern for further evaluation and adverse reaction. Patient states he has no symptoms at this time. No recent illness. No recent change in diet or activity. PAST MEDICAL HISTORY:See Below PAST SURGICAL HISTORY:See Below FAMILY HISTORY:See Below SOCIAL HISTORY:See Below HOME MEDICATIONS:See Below ALLERGIES:See Below VITALS:See Below PHYSICAL EXAMINATION: GENERAL: alert, well appearing, well nourished, no distress, non-toxic EYE EXAM: normal conjunctiva, PERRL and EOM's grossly intact OROPHARYNX: no exudate, no erythema, lips, buccal mucosa, and tongue normal and mucous membranes are moist NECK: supple, no nuchal rigidity, no adenopathy, non-tender LUNGS: Clear to auscultation. Normal chest wall mechanics, no w/r/r HEART: no murmurs, S1 normal and S2 normal ABDOMEN: abdomen soft, non-tender, normo-active bowel sounds, no masses, no rebound or guarding. BACK: Back is symmetrical on inspection and there is no deformity, no midline tenderness, no CVA tenderness. SKIN: no rashes, petechiae, orbruising UPPER EXTREMITIES: upper extremities are grossly normal. FROM, nml pulses b/l. LOWER EXTREMITIES: No pitting edema. FROM, nml pulses b/l. NEURO EXAM: Normal sensorium, cranial nerves II-XII grossly intact, normal speech, no facial droop,nogross weakness of arms, no gross weakness of legs. Gross sensation intact. No ataxia. Vital Signs: reviewed and remarkable Differential Diagnosis: Accidental overdose, intentional overdose, QT prolongation, dehydration, BENITA, dysrhythmia, as well as others were considered MEDICAL DECISION MAKING: This is a well-appearing 49-year-old male presents emergency department due to concern for accidental overdose this morning. Patient took double dose of his usual Wellbutrin, Vilazidone, and cetirizine. Patient asymptomatic on arrival, afebrile and vital signs stable. Labs drawn and sent, IV established, EKG performed at bedside interpreted by me and patient monitored on telemetry. I discussed the case with poison control who recommended 24-hour observation due to increased risk of delayed seizures. Patient's EKG reassuring, labs reassuring. I did discuss the recommendations of poison control with the patient at bedside who verbalized understanding. Case discussed with the hospitalist team additionally. I do not suspect intentional overdose, no suicidal ideation. Consultation(s): 0800: Discussed with Poison Control. Recommend observation for 24 hours from the time of ingestion due to delayed risk of seizures and the Wellbutrin XL with doses greater than 600 mg. 0950: Discussion with Dr. Sharma, [facility] hospitalist team, for additional evaluation and management. ER Treatment Provided: See below Diagnostics Interpreted By Me: -ECG: Normal sinus at 64, normal axis, normal intervals, no acute ST/T wave changes -Cardiac Monitoring: An order was placed for continuous cardiac monitoring. The monitor shows a rate of 78 with normal sinus rhythm. -Laboratory studies: As stated above and show below. Triage Nursing Note Reviewed Prior/Outside Records Reviewed Past Med/Surg History Problem List (Updated 03/13/24 @ 10:28 by Jaden Ann MD) Depression Accidental overdose (Acute) Impingement of shoulder Rotator cuff tendonitis Social History Smoking Status: Never smoker Hx Alcohol Use: No Hx Substance Use: No Preferred Language: [place] Communication Ability: Effective [employer] Ro[employer] Required: No Beliefs That Will Affect Care: None Current Living Situation: Spouse Other Information That Helps Us Care for You: No Feels Safe at Home: Yes Safety Concerns: Feels Safe At This Time Allergies Allergies Allergy/AdvReac Type Severity Reaction Status Date / Time No Known Allergies Allergy Unverified 03/13/24 08:25 Home Meds Home Medications Medication Instructions Recorded Confirmed acetaminophen 500 mg tablet 500 mg PO DIRECTED PRN Pain 03/13/24 03/13/24 bupropion HCl 150 mg 24 hr tablet, 150 mg PO QAM 03/13/24 03/13/24 extended release bupropion HCl 300 mg 24 hr tablet, 300 mg PO QAM 03/13/24 03/13/24 extended release cetirizine 10 mg tablet 10 mg PO QAM 03/13/24 03/13/24 vilazodone 10 mg tablet (Viibryd) 10 mg PO QAM 03/13/24 03/13/24 vilazodone 20 mg tablet (Viibryd) 20 mg PO QAM 03/13/24 03/13/24 Results & Data (ED) Vital Signs Vital Signs - 24 hr 03/13/24 07:37 03/13/24 08:18 03/13/24 09:20 Temperature 36 C L Temperature Source Temporal Artery Scan Pulse Rate 73 61 Pulse Rate [Left Finger] 77 Respiratory Rate 16 18 Respiratory Effort / Characteristics Non-Labored Respiratory Depth Normal Respiratory Pattern Regular Blood Pressure 144/83 H Blood Pressure [Left Arm] 134/85 Blood Pressure Mean 103 Blood Pressure Mean [Left Arm] 101 Pulse Oximetry 96 98 Oxygen Delivery Method Room Air Room Air Sepsis Recent Fever Within 48 Hours No Sepsis New/Unexplained Change in Mental Status N/A Sepsis Action Taken by Nursing No Action Required Laboratory Data 03/13/24 08:18 03/13/24 08:18 Lab Results 03/13/24 Range/Units 08:18 WBC 6.25 (4.8-10.8) K/ul RBC 4.73 (4.70-6.10) M/uL Hgb 14.2 (14.0-18.0) g/dl Hct 42.5 (42.0-52.0) % MCV 89.9 (80.0-100.0) fL MCH 30.0 (25.0-34.0) pg MCHC 33.4 (32.0-36.0) g/dL RDW Std Deviation 43.8 (36.4-46.3) fL RDW Coeff of Cory 13.2 (11.5-14.5) % Plt Count 250 (130-400) K/uL MPV 9.3 L (9.4-12.4) fL Immature Gran % (Auto) 0.2 % Neut % (Auto) 59.0 % Lymph % (Auto) 27.8 % [place] % (Auto) 5.4 % Eos % (Auto) 7.0 % Baso % (Auto) 0.6 % Neut # (Auto) 3.68 (1.40-6.50) K/uL Lymph # (Auto) 1.74 (1.20-3.40) K/uL [place] # (Auto) 0.34 (0.11-0.59) K/uL Eos # (Auto) 0.44 (0.00-0.50) K/uL Baso # (Auto) 0.04 (0.00-0.20) K/uL Immature Gran # (Auto) 0.01 (0.01-0.20) K/uL Sodium 137 (136-145) mmol/L Potassium 4.3 (3.5-5.1) mmol/L Chloride 102 (98-107) mmol/L Carbon Dioxide 30 (21-32) mmol/L Anion Gap 5 (3-11) BUN 17 (6-23) mg/dl Creatinine 1.26 (0.6-1.4) mg/dl Est Cr Clr Drug Dosing 72.8 ml/min eGFR 70.79 BUN/Creatinine Ratio 13.5 (10-20) Glucose 86 (70-99(Fasting)) mg/dl Calcium 10.0 (8.6-10.3) mg/dl Magnesium 2.0 (1.7-2.4) mg/dl Total Bilirubin 0.5 (0.2-1.0) mg/dl AST 24 (13-39) U/L ALT 28 (7-52) U/L Alkaline Phosphatase 54 (34-104) U/L Total Protein 7.0 (6.0-8.3) gm/dl Albumin 4.4 (3.4-5.0) gm/dl Globulin 2.6 (2.5-4.0) gm/dl Albumin/Globulin Ratio 1.7 (0.9-2) Administered Medications Sodium Chloride (Nss) 1,000 mls @ 125 mls/hr IV .Q8H LETHA Stop: 03/14/24 07:59 Last Infusion: 03/13/24 11:07 Dose: Infused Documented By: Admin: 03/13/24 08:37 Dose: 125 mls/hr Documented By: LAUREN Discharge Plan Visit Data Chief Complaint: Overdose (Accidental) Stated Complaint: TOOK DOUBLE DOSE WELLBUTRIN VILAZODONE AND ZYRTEC ED Provider: Jolynn Barajas Discharge Problem: Accidental overdose Patient Disposition: Admitted As Inpatient Discharge Instructions Interventions: ED Discharge Assessment Last Done: 03/13/24 15:09
[2024-03-13] MEDS: SODIUM CHLORIDE 0.9% 1,000 ML IV SCH (08:37)
[2024-03-13 08:45] LABS: Basophils # (auto) 0.04 K/uL (0.00-0.20); Basophils % (auto) 0.6 %; Eosinophils # (auto) 0.44 K/uL (0.00-0.50); Hematocrit (blood only) 42.5 % (42.0-52.0); Hemoglobin 14.2 g/dl (14.0-18.0); Immature Granulocytes # (auto) 0.01 K/uL (0.01-0.20); Immature Granulocytes % (auto) 0.2 %; Lymphocytes # (auto) 1.74 K/uL (1.20-3.40); Lymphocytes % (auto) 27.8 %; Mean Corpuscular Hgb Conc 33.4 g/dL (32.0-36.0); Mean Corpuscular Volume 89.9 fL (80.0-100.0); Mean Platelet Volume 9.3 fL (9.4-12.4); Monocytes # (auto) 0.34 K/uL (0.11-0.59); Monocytes % (auto) 5.4 %; Neutrophils # (auto) 3.68 K/uL (1.40-6.50); Platelet Count 250 K/uL (130-400); RDW Coefficient of Variation 13.2 % (11.5-14.5); RDW Standard Deviation 43.8 fL (36.4-46.3); Red Blood Count 4.73 M/uL (4.70-6.10); White Blood Count 6.25 K/ul (4.8-10.8)
[2024-03-13 09:03] LABS: Albumin Globulin Ratio 1.7 (0.9-2); Albumin Level 4.4 gm/dl (3.4-5.0); BUN Creatinine Ratio 13.5 (10-20); Bilirubin,Total 0.5 mg/dl (0.2-1.0); Creatinine Clr Calc Pharmacy 72.8 ml/min; Globulin 2.6 gm/dl (2.5-4.0); Potassium 4.3 mmol/L (3.5-5.1)
--- NOTE | 2024-03-13 09:09 | Electrocardiogram Report ---
Test Reason : Blood Pressure : */* mmHG Vent. Rate : 64 BPM Atrial Rate : 64 BPM P-R Int : 124 ms QRS Dur : 92 ms QT Int : 412 ms P-R-T Axes : 51 26 47 degrees QTcB Int : 425 ms Normal sinus rhythm Normal ECG No previous ECGs available Confirmed by Rafa Negron ([id number]) on 03/13/2024 9:09:48 AM Referred By: Confirmed By: Rafa Negron
--- NOTE | 2024-03-13 10:32 | History & Physical Report ---
Date of Service March 13, 2024 Assessment & Plan (1) Accidental overdose: Plan: Accidental overdose of Wellbutrin Took 2 times the morning dose of medication consisting of 450x2 mg in total He called the poison center and was advised to come in to the hospital He remains asymptomatic and his initial EKG and blood works are unremarkable He will be observed in the hospital and likely be discharged tomorrow (2) Depression: Plan: Will hold Wellbutrin for today Likely discharge tomorrow and will start his usual medications from tomorrow Plan DVT prophylaxis SCDs CODE STATUS full History of Present Illness Chief Complaint: Accidental overdose of Wellbutrin Primary Care Provider: Leigh Aaron MD He is a 49-year-old male with significant past medical history of depression and degenerative disc disease apparently took his usual morning medication and after some time he took the second dose of send medications by mistake. he did not feel any symptoms but call the poison center to get some advice. In the emergency room he did not have any symptoms and apparent blood test and EKG were unremarkable. The threshold dose of Wellbutrin is 900 mg and he took 600 mg. He will be observed in the hospital for about 24 hours and monitored to make sure there is no EKG abnormality or any QT prolongation and also observe for possible seizures. he will follow-up with his psychiatrist as usual following discharge Allergies Allergy/AdvReac Type Severity Reaction Status Date / Time No Known Allergies Allergy Unverified 03/13/24 08:25 Home Medications Medication Instructions Recorded Confirmed Type acetaminophen 500 mg tablet 500 mg PO DIRECTED PRN Pain 03/13/24 03/13/24 History bupropion HCl 150 mg 24 hr tablet, 150 mg PO QAM 03/13/24 03/13/24 History extended release bupropion HCl 300 mg 24 hr tablet, 300 mg PO QAM 03/13/24 03/13/24 History extended release cetirizine 10 mg tablet 10 mg PO QAM 03/13/24 03/13/24 History vilazodone 10 mg tablet (Viibryd) 10 mg PO QAM 03/13/24 03/13/24 History vilazodone 20 mg tablet (Viibryd) 20 mg PO QAM 03/13/24 03/13/24 History Past Med/Surg History Problem List (Updated 03/13/24 @ 10:28 by Jaden Ann MD) Depression Accidental overdose (Acute) Impingement of shoulder Rotator cuff tendonitis Social History Smoking Status: Never smoker Preferred Language: [place] Feels Safe at Home: Yes Review of Systems Review of Systems: All systems reviewed and are unremarkable except as noted below Physical Exam Physical Exam: Standing beside the bed without any apparent distress Constitutional: average body habitus; not ill appearing Eyes: PERRL, conjunctivae normal, anicteric sclerae ENMT: external ear and nose normal, oropharynx normal Neck: trachea midline, no thyromegaly Respiratory: no respiratory distress Auscultation: lungs clear to auscultation bilaterally Cardiovascular: Rate/Rhythm: regular rate and regular rhythm; not tachycardic Heart Sounds: normal S1 and normal S2; no murmur Extremities: no edema Gastrointestinal (Abdomen): Inspection/Auscultation: normal bowel sounds; abd omen not distended Percussion/Palpation: abdomen soft; abdomen nontender Musculoskeletal: No acute arthritis involving any of the joint Neurologic: Alert, awake and oriented x 3. No focal sensory and motor deficit appreciated Psychiatric: anxious but no other symptoms Lymphatic: no cervical or axillary lymphadenopathy Results & Data Results & Data Vital Signs (Past 12 Hours) Vital Signs Temp Pulse Pulse Resp BP BP Pulse Ox 03/13/24 09:20 77 18 134/85 98 03/13/24 08:18 61 03/13/24 07:37 36 C L 73 16 144/83 H 96 O2 Del Method 03/13/24 09:20 Room Air 03/13/24 08:18 03/13/24 07:37 Room Air Laboratory Results Short CBC 03/13/24 Range/Units 08:18 WBC 6.25 (4.8-10.8) K/ul Hgb 14.2 (14.0-18.0) g/dl Hct 42.5 (42.0-52.0) % Plt Count 250 (130-400) K/uL BMP 03/13/24 08:18 Sodium 137 Potassium 4.3 Chloride 102 Carbon Dioxide 30 BUN 17 Creatinine 1.26 Glucose 86 Calcium 10.0 Liver Function 03/13/24 Range/Units 08:18 Total Bilirubin 0.5 (0.2-1.0) mg/dl AST 24 (13-39) U/L ALT 28 (7-52) U/L Alkaline Phosphatase 54 (34-104) U/L Albumin 4.4 (3.4-5.0) gm/dl Medications Administered Current Inpatient Medications Sodium Chloride (Nss) 1,000 mls @ 125 mls/hr IV .Q8H LETHA Stop: 03/14/24 07:59 Last Admin: 03/13/24 08:37 Dose: 125 mls/hr Code Status & VTE Plan VTE Prophylaxis Plan VTE Prophylaxis will be ordered: Yes
[2024-03-13] MEDS ORDERED: ACETAMINOPHEN 500 MG TAB PO PRN ×2 (12:06→12:54)
--- NOTE | 2024-03-13 15:19 | Electrocardiogram Report ---
Test Reason : Blood Pressure : */* mmHG Vent. Rate : 78 BPM Atrial Rate : 78 BPM P-R Int : 120 ms QRS Dur : 102 ms QT Int : 408 ms P-R-T Axes : 69 44 46 degrees QTcB Int : 465 ms Normal sinus rhythm Normal ECG When compared with ECG of 13-Mar-2024 08:07, No significant change was found Confirmed by Rafa Negron ([id number]) on 03/13/2024 3:18:52 PM Referred By: REFERRED SELF Confirmed By: Rafa Negron
[2024-03-13] MEDS ORDERED: LORazepam 2 MG/1 ML VIAL IV PRN (18:28)
--- NOTE | 2024-03-14 09:02 | Electrocardiogram Report ---
Test Reason : Blood Pressure : */* mmHG Vent. Rate : 66 BPM Atrial Rate : 66 BPM P-R Int : 140 ms QRS Dur : 100 ms QT Int : 420 ms P-R-T Axes : 48 20 44 degrees QTcB Int : 440 ms Normal sinus rhythm Incomplete right bundle branch block Borderline ECG When compared with ECG of 13-Mar-2024 20:37, Nonspecific T wave abnormality no longer evident in Lateral leads Confirmed by Rafa Negron ([id number]) on 03/14/2024 9:02:17 AM Referred By: REFERRED SELF Confirmed By: Rafa Negron
--- NOTE | 2024-03-14 09:12 | Electrocardiogram Report ---
Test Reason : Blood Pressure : */* mmHG Vent. Rate : 67 BPM Atrial Rate : 67 BPM P-R Int : 112 ms QRS Dur : 88 ms QT Int : 460 ms P-R-T Axes : 46 48 55 degrees QTcB Int : 486 ms Poor data quality, interpretation may be adversely affected Normal sinus rhythm Diffuse Minor Nonspecific T wave abnormality Abnormal ECG When compared with ECG of 13-Mar-2024 14:09, Nonspecific T wave abnormality now evident in Lateral leads Confirmed by Rafa Negron ([id number]) on 03/14/2024 9:12:28 AM Referred By: REFERRED SELF Confirmed By: Rafa Negron
[2024-03-14] MEDS: CETIRIZINE HCL 10 MG TABLET PO SCH (10:27)
--- NOTE | 2024-03-14 10:53 | Discharge Summary ---
Discharge Summary Date of Service March 14, 2024 Principal Dx & Hospital Course #1 = Principal Diagnosis (1) Accidental overdose: (2) Depression: Plan Mr. Wagner is a 49 year old gentleman who accidentally took double his am dose of wellbutrin. Patient denies an SI/HI or ideas of self harm. Patient admitted for monitoring without any signs of qtc prolongation or concerns. Patient counseled on safe medication management. Patient eating well, ambulating without difficulty and denies any new concerns Notes For Next Care Provider Medication Changes From Visit none Admission HPI Per Admitting Provider He is a 49-year-old male with significant past medical history of depression and degenerative disc disease apparently took his usual morning medication and after some time he took the second dose of send medications by mistake. he did not feel any symptoms but call the poison center to get some advice. In the emergency room he did not have any symptoms and apparent blood test and EKG were unremarkable. The threshold dose of Wellbutrin is 900 mg and he took 600 mg. He will be observed in the hospital for about 24 hours and monitored to make sure there is no EKG abnormality or any QT prolongation and also observe for possible seizures. he will follow-up with his psychiatrist as usual following discharge Admission Exam Per Admitting Provider Physical Exam: Standing beside the bed without any apparent distress Constitutional: average body habitus; not ill appearing Eyes: PERRL, conjunctivae normal, anicteric sclerae ENMT: external ear and nose normal, oropharynx normal Neck: trachea midline, no thyromegaly Respiratory: no respiratory distress Auscultation: lungs clear to auscultation bilaterally Cardiovascular: Rate/Rhythm: regular rate and regular rhythm; not tachycardic Heart Sounds: normal S1 and normal S2; no murmur Extremities: no edema Gastrointestinal (Abdomen): Inspection/Auscultation: normal bowel sounds; abdomen not distended Percussion/Palpation: abdomen soft; abdomen nontender Musculoskeletal: No acute arthritis involving any of the joint Neurologic: Alert, awake and oriented x 3. No focal sensory and motor deficit appreciated Psychiatric: anxious but no other symptoms Lymphatic: no cervical or axillary lymphadenopathy Discharge Exam Constitutional WD/WN, vitals as above Respiratory normal respiratory effort, lungs clear to auscultation Cardiovascular RRR, no murmur, no edema Musculoskeletal no cyanosis or clubbing, extremities motor strength 5/5 Updated Medication List Medication Instructions Recorded Confirmed Type acetaminophen 500 mg tablet 500 mg PO DIRECTED PRN Pain 03/13/24 03/13/24 History bupropion HCl 150 mg 24 hr tablet, 150 mg PO QAM 03/13/24 03/13/24 History extended release bupropion HCl 300 mg 24 hr tablet, 300 mg PO QAM 03/13/24 03/13/24 History extended release cetirizine 10 mg tablet 10 mg PO QAM 03/13/24 03/13/24 History vilazodone 10 mg tablet (Viibryd) 10 mg PO QAM 03/13/24 03/13/24 History vilazodone 20 mg tablet (Viibryd) 20 mg PO QAM 03/13/24 03/13/24 History Hospital Stay Data Consultations 03/13/24 09:56 ED Decision to Admit Stat Pending Results Patient Have Any Pending Studies at Discharge: No Discharge Instructions Given to Patient (Per Discharging Provider) Please be cognizant of medications and dosing There were no changes to your current medications Total Time Total Time Spent Total Time Spent (In Minutes): 35
== END 2024-03-14 11:19 | disposition home or self-care (01) ==
LOC: EDINP 07:34 → ED 07:34 → SUATTDRO 10:11 → 2N 15:09